=== PATIENT | male | born 1960 | race Caucasian/White ===

== ENCOUNTER 2020-10-16 08:16 | Outpatient (CLI) | payer BC | END 2020-10-16 08:17 | disposition home or self-care (01) | LOC: CSHCT 08:16 | PROVIDERS: ATTEND Internal Medicine Hematology & Oncology | DX: C7A.019 Malignant carcinoid tumor of the small intestine, unspecified portion (principal); C7B.02 Secondary carcinoid tumors of liver; R91.1 Solitary pulmonary nodule; R19.09 Other intra-abdominal and pelvic swelling, mass and lump | CPT/HCPCS: 71260; 74177 ==

== ENCOUNTER 2021-11-19 07:19 | Outpatient (CLI) | payer BC ==
[2021-11-19] MEDS ORDERED: Iopamidol 300 61% 100 ML VIAL FS ONE (09:13)
== END 2021-11-19 07:20 | disposition home or self-care (01) ==
LOC: CSHCT 07:19
PROVIDERS: ATTEND Internal Medicine Hematology & Oncology
DX: C7A.019 Malignant carcinoid tumor of the small intestine, unspecified portion (principal); C7B.02 Secondary carcinoid tumors of liver; R91.1 Solitary pulmonary nodule; K76.0 Fatty (change of) liver, not elsewhere classified; R19.07 Generalized intra-abdominal and pelvic swelling, mass and lump
CPT/HCPCS: 71260; 74177; 82565

== ENCOUNTER 2022-01-23 09:15 | Outpatient (CLI) | payer BC | END 2022-01-23 09:16 | disposition home or self-care (01) | LOC: CSHCT 09:15 | PROVIDERS: ATTEND Internal Medicine Hematology & Oncology | DX: R91.1 Solitary pulmonary nodule (principal); C7B.02 Secondary carcinoid tumors of liver; C7A.019 Malignant carcinoid tumor of the small intestine, unspecified portion; R91.8 Other nonspecific abnormal finding of lung field | CPT/HCPCS: 71250 ==

== ENCOUNTER 2022-05-13 08:18 | Outpatient (CLI) | payer BC ==
[2022-05-13] MEDS ORDERED: Iopamidol 300 61% 100 ML VIAL FS ONE (14:19)
== END 2022-05-13 08:19 | disposition home or self-care (01) ==
LOC: CSHCT 08:18
PROVIDERS: ATTEND Internal Medicine Hematology & Oncology
DX: C7B.02 Secondary carcinoid tumors of liver (principal); C7A.019 Malignant carcinoid tumor of the small intestine, unspecified portion; R91.1 Solitary pulmonary nodule
CPT/HCPCS: 71260; 74177; 82565; Q9967

== ENCOUNTER 2022-10-11 07:24 | Emergency (ER) | payer BC ==
[2022-10-11] MEDS ORDERED: diphenhydrAMINE 50 MG/ML VIAL ONE (08:01)
[2022-10-11] MEDS ORDERED: Metoclopramide HCl 10 MG/2 ML VIAL ONE (08:01)
[2022-10-11 08:33] LABS: #Basophils 0.1 10x3/uL (0.0-0.2); #Eosinphils 0.1 10x3/uL (0.0-0.5); #Monocytes 0.4 10x3/uL (0.0-1.1); %Basophils 0.8 % (0.0-2.0); %Eosinophils 1.9 % (0.0-6.0); %Lymphocytes 11.2 % (18.0-47.0); %Monocytes 5.6 % (0.0-10.0); %Neutrophils 80.2 % (40.0-75.0); Hemoglobin 14.8 g/dL (13.5-17.5); Mean Corpuscular HGB CONC 33.2 g/dL (32.0-36.0); Mean Corpuscular Hemoglobin 30.9 pg (27.0-33.0); Mean Corpuscular Volume 93.1 fl (81.2-95.1); Mean Platelet Volume 11.5 fl (7.4-10.4); Platelet Count 186 10x3/uL (150-450); RBC Distribution Width 13.7 % (11.5-14.5); Red Blood Cell (RBC) Count 4.79 10x6/uL (4.32-5.72); White Blood Cell (WBC) Count 7.5 10x3/uL (3.5-10.5)
[2022-10-11 08:50] LABS: ALT (SGPT) 36 U/L (8-55); AST (SGOT) 34 U/L (5-34); Albumin 4.2 g/dL (3.5-5.0); Alkaline Phosphatase 86 U/L (40-110); Anion Gap 14 mmol/L (10-20); BUN (Urea Nitrogen) 14 mg/dL (8.4-25.7); Bilirubin, Total 1.6 mg/dL (0.2-1.2); Calc. Creatinine Clearance 0 mL/min (70-130); Calcium 9.1 mg/dL (7.8-10.44); Carbon Dioxide 24 mmol/L (22-29); Chloride 103 mmol/L (98-107); Estimated GFR 83; Globulin 3.8 g/dL (2.4-3.5); Glucose 126 mg/dL (70-105); Potassium 4.2 mmol/L (3.5-5.1); Sodium 137 mmol/L (136-145)
== END 2022-10-11 09:54 | disposition home or self-care (01) ==
LOC: CSHERS 07:24
DX: R51.9 Headache, unspecified (principal); I10 Essential (primary) hypertension
CPT/HCPCS: 70450; 80053; 85025; 96365; 96375; J1200; J2765

== ENCOUNTER 2022-11-11 08:48 | Outpatient (CLI) | payer BC | END 2022-11-11 08:49 | disposition home or self-care (01) | LOC: CSHCT 08:48 | PROVIDERS: ATTEND Internal Medicine Hematology & Oncology | DX: C7B.02 Secondary carcinoid tumors of liver (principal); C7A.019 Malignant carcinoid tumor of the small intestine, unspecified portion; R91.1 Solitary pulmonary nodule; R59.0 Localized enlarged lymph nodes; K74.60 Unspecified cirrhosis of liver; K57.30 Diverticulosis of large intestine without perforation or abscess without bleeding; K62.89 Other specified diseases of anus and rectum; K59.00 Constipation, unspecified | CPT/HCPCS: 71250; 74177 ==

== ENCOUNTER 2023-05-19 09:13 | Outpatient (CLI) | payer BC | END 2023-05-19 09:14 | disposition home or self-care (01) | LOC: CSHCT 09:13 | PROVIDERS: ATTEND Internal Medicine Hematology & Oncology | DX: C7B.02 Secondary carcinoid tumors of liver (principal); C7A.019 Malignant carcinoid tumor of the small intestine, unspecified portion; R91.1 Solitary pulmonary nodule; R19.00 Intra-abdominal and pelvic swelling, mass and lump, unspecified site; K76.9 Liver disease, unspecified | CPT/HCPCS: 71250; 74177 ==

== ENCOUNTER 2023-09-18 08:20 | Day surgery (SDC) | payer BC ==
[2023-09-16 15:07] VITALS: BMI 33.6
[2023-09-18] MEDS ORDERED: Indocyanine Green 25 MG/10 ML VIAL ONE (08:24)
[2023-09-18] MEDS ORDERED: Fentanyl 250 MCG/5 ML VIAL ONE (08:52)
[2023-09-18] MEDS ORDERED: PROPOFOL 20 ML ONE ×2 (08:52→09:38)
[2023-09-18] MEDS ORDERED: Bupivacaine PF 0.5% 30 ML VIAL ONE (09:27)
[2023-09-18] MEDS ORDERED: SUGAMMADEX SODIUM 200 MG/2 ML VIAL ONE (09:41)
[2023-09-18] MEDS ORDERED: Phenylephrine 40 MG/NS 250 ML 250 ML ONE (09:42)
[2023-09-18] MEDS ORDERED: CEFAZOLIN 2 GM VIAL ONE (09:43)
[2023-09-18] MEDS ORDERED: EPINEPHrine 1 MG/ML AMP ONE (10:12)
[2023-09-18] MEDS ORDERED: ePHEDrine Sulfate 50 MG/10 ML VIAL ONE (10:13)
[2023-09-18] MEDS ORDERED: Ondansetron PF 4 MG/2 ML Vial ONE (10:13)
[2023-09-18] MEDS ORDERED: Dexamethasone 20 MG/5 ML VIAL ONE (10:13)
[2023-09-18] MEDS ORDERED: HYDROcodone/Acetaminophen 5/325 mg Tablet PO PRN (11:32)
[2023-09-18] MEDS ORDERED: Acetaminophen 325 MG TAB PO PRN (11:32)
== END 2023-09-18 12:40 | disposition home or self-care (01) ==
LOC: CSHSDC 08:20
PROVIDERS: ATTEND Surgery
PROC: BF03YZZ Plain Radiography of Gallbladder and Bile Ducts using Other Contrast (ICD-10-PCS; principal; 2023-09-18)
PROC: 0FT44ZZ Resection of Gallbladder, Percutaneous Endoscopic Approach (ICD-10-PCS; principal; 2023-09-18)
DX: K81.1 Chronic cholecystitis (principal); K82.8 Other specified diseases of gallbladder; K76.89 Other specified diseases of liver; J44.89 Other specified chronic obstructive pulmonary disease; C7A.8 Other malignant neuroendocrine tumors; E11.9 Type 2 diabetes mellitus without complications; I10 Essential (primary) hypertension; Z90.49 Acquired absence of other specified parts of digestive tract; Z88.5 Allergy status to narcotic agent; Z91.09 Other allergy status, other than to drugs and biological substances
CPT/HCPCS: 88304; C1889; J0171; J0665; J1100; J2405; J2704; J3010